=== PATIENT | female | born 1995 | race Caucasian/White ===

== ENCOUNTER 2019-06-07 01:29 | Emergency (ER) | payer SELFPAY ==
[~2019-06-07] VITALS: Ht 154.9 cm; Wt 52.2 kg
[2019-06-07 01:45] VITALS: BP 117/79
--- NOTE | 2019-06-07 01:45 | NUR ---
PT BIBS. SOB X 2 DAYS. XOPENEX USED INEFFECTIVE. -NO COUGH. NO ACUTE DISTRESS NOTED. PT AAOX4, VSS AT THIS TMIE. PT CONNECTED TO THE ETCHER HAND AND POX
--- NOTE | 2019-06-07 02:26 | NUR ---
Patient discharged to home in stable condition. Written and verbal after care instructions given. Patient verbalizes understanding of instruction.
== END 2019-06-07 02:27 | disposition home or self-care (01) ==
LOC: ER 01:33
DX: J45.909 Unspecified asthma, uncomplicated (principal); Z88.0 Allergy status to penicillin; Z91.040 Latex allergy status; Z98.890 Other specified postprocedural states; Z60.2 Problems related to living alone

== ENCOUNTER → 2019-06-08 | Emergency (ER) | payer BC ==
[~2019-06-08] VITALS: Ht 154.9 cm; Wt 54.4 kg
[2019-06-08 09:52] VITALS: BP 115/67
[2019-06-08 10:05] LABS: BILIRUBIN,URINE Negative (NEGATIVE); BLOOD, URINE Large Ery/uL (NEGATIVE); COLOR,URINE Yellow (YELLOW); KETONES,URINE Negative (NEGATIVE); LEUKOCYTE ESTERASE ,URINE Small (NEGATIVE); NITRITE, URINE Negative (NEGATIVE); PROTEIN,URINE Trace mg/dl (NEGATIVE); UGLUCOSE Negative (NEGATIVE); UROBILINOGEN,URINE 0.2 EU/dL (0.2)
[2019-06-08 10:07] LABS: APPEARANCE,URINE SLIGHTLY CLOUDY (CLEAR)
[2019-06-08 10:11] LABS: RBC,URINE 50-70 /HPF (0-2); WBC,URINE 15-18 /HPF (0-3)
[2019-06-08 10:12] LABS: BACTERIA,URINE Few /HPF (None Seen); MUCUS,URINE Few /LPF (None Seen); SQUAMOUS EPITHELIAL CELL,UR Moderate /HPF (None Seen)
--- NOTE | 2019-06-08 10:28 | NUR ---
Patient discharged to home in stable condition. Written and verbal after care instructions given. Patient verbalizes understanding of instruction.
== END | disposition home or self-care (01) ==
LOC: ER 09:51
DX: N30.00 Acute cystitis without hematuria (principal); J45.909 Unspecified asthma, uncomplicated; Z88.0 Allergy status to penicillin; Z90.89 Acquired absence of other organs; Z91.040 Latex allergy status; Z60.2 Problems related to living alone
CPT/HCPCS: 81000-TC; 84703-TC